=== PATIENT | male | born 1995 | race Caucasian/White ===

== ENCOUNTER 2019-01-27 16:27 | Emergency (ER) | payer BC ==
[~2019-01-27] VITALS: Ht 190.5 cm; Wt 83.9 kg
[2019-01-27] MEDS ORDERED: NOHOMEMEDICATIONS (16:38)
[2019-01-27] MEDS ORDERED: ACETAMINOPHEN-1 EAC1 PO (17:29)
[2019-01-27 18:00] VITALS: BP 127/80
== END 2019-01-27 18:02 | disposition home or self-care (01) ==
LOC: M.ERS 16:27
DX: S52.121A Displaced fracture of head of right radius, initial encounter for closed fracture (principal); W50.0XXA Accidental hit or strike by another person, initial encounter; Y93.67 Activity, basketball; Y92.89 Other specified places as the place of occurrence of the external cause; Y99.8 Other external cause status

== ENCOUNTER 2020-05-24 10:32 | Emergency (ER) | payer BC ==
[~2020-05-24] VITALS: Ht 190.5 cm; Wt 81.7 kg
[~2020-05-24 10:32] MED LIST: ACETAMINOPHEN-1 EAC1 PO; NOHOMEMEDICATIONS
[2020-05-24 10:50] LABS: HEMATOCRIT 43.1 % (42.0-52.0); HEMOGLOBIN 14.6 gm/dL (14.0-18.0); MCH 28.9 pg (26.0-34.0); MPV 8.4 fl. (7.2-11.1); NUCLEATED RBCS 0 /100WBC; PLATELET COUNT* 316 thou/uL (150-400); RBC 5.07 mil/uL (4.50-6.00); RDW-CV 13.2 % (10.5-14.5); WBC 31.3 thou/uL (4.0-11.0)
[2020-05-24 10:56] LABS: URINE BILIRUBIN NEGATIVE (Negative); URINE BLOOD NEGATIVE (Negative); URINE CLARITY CLEAR; URINE COLOR YELLOW; URINE GLUCOSE-RANDOM NEGATIVE (Negative); URINE KETONES 1+ (Negative); URINE LEUKOCYTES-REFLEX NEGATIVE (Negative); URINE NITRITE-REFLEX NEGATIVE (Negative); URINE PROTEIN NEGATIVE (Negative); URINE SPECIFIC GRAVITY >= 1.030 (1.005-1.030); URINE UROBILINOGEN 0.2 E.U./dl (0.2-1.0)
[2020-05-24 11:00] LABS: CALCIUM 9.5 mg/dL (8.5-10.1); CREATININE 1.3 mg/dL (0.6-1.3); POTASSIUM 3.5 mmol/L (3.5-5.1)
[2020-05-24 11:04] LABS: ALBUMIN 5.2 g/dL (3.4-5.0); TOTAL BILIRUBIN 1.7 mg/dL (<0.1-1.0); TOTAL PROTEIN 8.2 g/dL (6.4-8.2)
[2020-05-24 11:15] LABS: ABSOLUTE EOSINOPHILS 0.3 thou/uL (0.0-0.7); ABSOLUTE LYMPHOCYTES 2.5 thou/uL (0.8-5.3); ABSOLUTE NEUTROPHILS 28.5 thou/uL (1.6-8.1); PLATELET ESTIMATE ADEQUATE
[2020-05-24] MEDS ORDERED: ZOFRAN ODT4 MG DISSOLVE (12:24)
[2020-05-24 12:27] VITALS: BP 119/42
== END 2020-05-24 12:27 | disposition home or self-care (01) ==
LOC: M.ERS 10:32
PROVIDERS: Family Medicine
DX: R11.2 Nausea with vomiting, unspecified (principal)